=== PATIENT | female | born 1970 | race Hispanic/Latino ===

== ENCOUNTER 2019-10-17 19:27 | Emergency (ER) | payer SELFPAY ==
[~2019-10-17] VITALS: Ht 149.9 cm; Wt 49.9 kg
[2019-10-17] MEDS ORDERED: SODIUM CHLORIDE 0.9% 1000ML 1,000 ML IV STA (19:42)
[2019-10-17] MEDS ORDERED: FAMOTIDINE 20 MG/2 ML VIAL IV ONE (19:45)
[2019-10-17] MEDS ORDERED: ONDANSETRON HCL INJ 2MG/ML 2ML 2 MG/ML VIAL IV ONE (19:45)
[2019-10-17] MEDS ORDERED: IOPAMIDOL 370 MG/ML 200 ML INFUS..BTL INJ ONE (20:19)
[2019-10-17] MEDS ORDERED: SODIUM CHLORIDE 0.9% 50ML 50 ML ONE (20:19)
[2019-10-17] MEDS ORDERED: SODIUM CHLORIDE 0.9% 1000ML 1,000 ML ONE (20:29)
[2019-10-17] MEDS ORDERED: POTASSIUM CHLORIDE 20 MEQ TAB CR PO STA (20:48)
--- NOTE | 2019-10-17 21:49 | Diagnostic Imaging Report ---
EXAMINATION: CT of the abdomen and pelvis with contrast. TECHNIQUE: Spiral CT images of the abdomen and pelvis were performed from the lung bases to the lesser trochanters after the intravenous administration of 100 cc of Isovue 370. Coronal and sagittal reformatted images were obtained. COMPARISON: None. CLINICAL HISTORY:Abdominal pain DISCUSSION: ABDOMEN/PELVIS: LOWER THORAX:Lung bases are unremarkable. No pleural effusion. HEPATOBILIARY: Hepatic parenchyma is diffusely hypoattenuating compatible with steatosis. No focal hepatic lesion. No intra-or extrahepatic biliary ductal dilation. The gallbladder is unremarkable. SPLEEN: No splenomegaly or focal splenic lesion. PANCREAS: No focal masses or ductal dilatation. ADRENALS: No adrenal nodules. KIDNEYS/URETERS: No hydronephrosis, calculi, or solid or cystic mass lesions. PELVIC ORGANS/BLADDER: Urinary bladder is unremarkable. The uterus is anteflexed and appears normal. Bilateral tubal ligation clips. No adnexal mass. PERITONEUM/RETROPERITONEUM: Trace free pelvic fluid, likely physiologic in a female patient of this age. No pneumoperitoneum. LYMPH NODES: No pelvic sidewall, retroperitoneal, or mesenteric lymphadenopathy. VESSELS: Abdominal aorta, major branch vessels, and iliac arterial systems are patent. Portal vein, splenic vein, and central superior mesenteric vein are patent. Incidental note of a circumaortic left renal vein. GI TRACT: There are multiple diverticula scattered along the descending and sigmoid colon without wall thickening or adjacent inflammatory change. The patient is status post appendectomy. The stomach is collapsed with prominent rugal folds. No small bowel dilatation to suggest obstruction. There is mild wall thickening of multiple loops of jejunum in the left upper quadrant with nonenlarged though numerous adjacent lymph nodes. BONES AND SOFT TISSUE: No osseous destructive lesions. Mild degenerative disc changes and facet arthropathy of the lumbar spine worst at L5-S1. No focal soft tissue abnormalities. IMPRESSION: Mild wall thickening of multiple loops of jejunum is a nonspecific finding though may be seen in the setting of regional enteritis. No evidence of bowel obstruction or drainable fluid collection. Large bowel diverticulosis without evidence of diverticulitis. Hepatic steatosis. Signed by: Dr. Alexx Stock M.D. on 10/17/2019 9:47 PM
[2019-10-17] MEDS ORDERED: POTASSIUM CHLORIDE 20 MEQ TAB CR PO ONE (21:56)
--- NOTE | 2019-10-17 22:10 | NUR ---
DC'D IVSL WITHOUT DIFF. PT TOLERATED WELL. NO SWELLING/HEMATOMA/REDNESS/BLEEDING FROM SITE NOTED. IV CATH INTACT
[2019-10-18 01:14] VITALS: BP 153/97
== END 2019-10-17 22:15 | disposition home or self-care (01) ==
LOC: FSED 19:27
DX: R10.33 Periumbilical pain (principal)
CPT/HCPCS: 74177; 80048; 80076; 81003; 81025; 82553; 83880; 84484; 85025; 93005; J2405; J7030; Q9967

== ENCOUNTER 2020-05-26 21:18 | Emergency (ER) | payer SELFPAY ==
[~2020-05-26] VITALS: Ht 149.9 cm; Wt 54.4 kg
== END 2020-05-26 21:48 | disposition home or self-care (01) ==
LOC: FSED 21:40
DX: H60.91 Unspecified otitis externa, right ear (principal); I10 Essential (primary) hypertension; E11.9 Type 2 diabetes mellitus without complications; E78.00 Pure hypercholesterolemia, unspecified
CPT/HCPCS: 99282